=== PATIENT | female | born 1955 | race Two or more races ===

== ENCOUNTER 2019-06-20 07:05 | Day surgery (SDC) | payer MEDICARE, MEDICAID ==
[2019-06-18 08:20] LABS: BASOPHILS % (AUTO) 1.1 % (0.0-2.0); EOSINOPHILS % (AUTO) 3.7 % (0.0-3.0); HEMATOCRIT 41.5 % (37.0-47.0); HEMOGLOBIN 13.9 G/DL (12.0-16.0); LYMPHOCYTES % (AUTO) 25.9 % (20.0-45.0); MEAN CORPUSCULAR VOLUME 90 FL (80-99); MONOCYTES % (AUTO) 7.6 % (1.0-10.0); NEUTROPHILS % (AUTO) 61.7 % (45.0-75.0); PLATELET COUNT 426 K/UL (150-450); RED BLOOD COUNT 4.63 M/UL (4.20-5.40); RED CELL DISTRIBUTION WIDTH 12.1 % (11.6-14.8); WHITE BLOOD COUNT 10.6 K/UL (4.8-10.8)
[2019-06-18 08:25] LABS: ANION GAP 7 mmol/L (5-15); BLOOD UREA NITROGEN 15 mg/dL (7-18); CALCIUM 8.9 MG/DL (8.5-10.1); CARBON DIOXIDE 30 MMOL/L (21-32); CHLORIDE 103 MMOL/L (98-107); CREATININE 0.8 MG/DL (0.55-1.30); POTASSIUM 4.4 MMOL/L (3.5-5.1); SODIUM 140 MMOL/L (136-145)
[2019-06-18 08:49] LABS: INR 0.9 (0.9-1.1)
--- NOTE | 2019-06-18 11:02 | Opthalmology H&P ---
Ophthalmology H&P H&P Chief Complaint: decreased vision in left eye HPI Vision Affects Ability to: read, focus/use eyes together, manage personal affairs HPI Narrative Blurry Vision Exam Visual Acuity: OD 20/30 OS 20/200 Tension: OD 13 OS 13 Eye Exam: normal OU: external exam, palpebral fissure-width, marginal reflex distance, levator function, corneas, anterior chambers, fundus exam; findings: lens - NS OS Assessment/Plan Treatment Plan: cataract extraction w/ lens implant - Left Eye Goals of Treatment: improvement of vision, enhance quality of life Attestation Attestation The risks and benefits of the surgery as well as alternative procedures were explained to the patient in detail. Delmer Garcia MD Jun 18, 2019 11:02
--- NOTE | 2019-06-18 11:03 | Pre-Procedure Note/Attestation ---
Pre-Procedure Note/Attestation Complete Prior to Procedure Planned Procedure: left Procedure Narrative: Cataract Extraction With Intraocular Lens Implant Left Eye Indications for Procedure Pre-Operative Diagnosis: Nuclear Sclerotic Cataract Left Eye Attestation I attest that I discussed the nature of the procedure; its benefits; risks and complications; and alternatives (and the risks and benefits of such alternatives ), prior to the procedure, with the patient (or the patient's legal insurance healthcare representative). I attest that, if there was a reasonable possibility of needing a blood transfusion, the patient (or the patient's legal insurance healthcare representative) was given the [facility] standardized written summary, pursuant to the [place] Blood Safety Act ([place] Health and Safety Code # 1645, as amended). I attest that I re-evaluated the patient just prior to the surgery and that there has been no change in the patient's H&P, except as documented below: Delmer Garcia MD Jun 18, 2019 11:03
--- NOTE | 2019-06-18 16:00 | Pre-op HX & Phy Repo 2 SIG ---
DATE OF ADMISSION: 06/20/2019 PRESURGICAL INTERNAL MEDICINE HISTORY AND PHYSICAL DATE OF EVALUATION: 06/18/2019. REFERRING PHYSICIAN: Delmer Garcia M.D. REASON FOR EVALUATION: I was asked to see this 64-year-old female who going for elective surgery of the left eye cataract on 06/20/2019 at [facility]. The patient was evaluated in outpatient procedure [facility]. PAST MEDICAL HISTORY/REVIEW OF SYSTEMS: Remarkable for hypertension. Denies history of chest pain, palpitation, or heart attack. No diabetes mellitus. No stroke or seizures. Denies history of respiratory problem. No asthma or bronchitis. No history of thyroid problem. No renal failure. No GI bleeding. PAST SURGICAL HISTORY: . FAMILY HISTORY: Mother from complication of liver cancer. Father had a heart attack. ALLERGIES: Not known. PRESENT MEDICATIONS: Include baby aspirin 81 mg, atorvastatin 10 mg, hydrochlorothiazide 12.5 mg, . HABITS: Denies history of smoke or alcohol habits. No street drugs. PHYSICAL EXAMINATION: GENERAL: Alert, well-developed, well-nourished female in her 60's, no acute distress. VITAL SIGNS: Blood pressure 144/85, temperature 97, pulse 93 regular, O2 saturation 99% on room air, respiratory rate 20 per minute. SKIN: Clear, warm, and dry. No rashes. LYMPHATICS: Lymph nodes not enlarged. HEENT: Head, normocephalic and atraumatic. Ears, clear, no discharge. Eyes, full description per Dr. Delmer Garcia. Mouth, clear and moist. Absent teeth. NECK: No jugular vein distention. Carotids artery +2. Trachea midline. CHEST: No deformity or asymmetry. LUNGS: Clear to auscultation and percussion. No rales or rhonchi. HEART: Sinus rhythm. No ectopy. No murmur. No S3, S4. ABDOMEN: Soft, benign. Liver and spleen not enlarged. No rebound. EXTREMITIES: No peripheral edema. No varicose vein. Degenerative joint disease of knee. GENITOURINARY TRACT: Denies dysuria. No CVA tenderness. NERVOUS SYSTEM: No tremor. No nystagmus. No asymmetry. ECG, normal sinus rhythm, 63 per minute, normal ECG. LABORATORY DATA: Lab work pending. The patient is to be NPO after midnight, 06/20/2019. IMPRESSION: 1. Nuclear sclerotic cataract, left eye. 2. Hypertension, controlled. 3. Degenerative joint disease, knee. PLAN: Cataract extraction, left eye with intraocular lens implant per Dr. Delmer Garcia. CONCLUSION: The patient is a 64-year-old female with history of hypertension with normal EKG and normal vital signs. The patient's condition optimized for surgery. Thank you very much, Dr. Garcia, for privilege to participate in presurgical care of this interesting patient. Geovanni Dickson M.D. DR: BRANDIE JOB#: [id number] CC:
[2019-06-20] VITALS (9 sets, daily range): BP systolic 121–143; BP diastolic 72–91
[~2019-06-20] VITALS: Ht 152.4 cm; Wt 85.3 kg
[~2019-06-20 07:05] MED LIST: ASPIR 8181 MG ORAL; Akten 3.5% 1ml Btl LEFT EYE ONE; HYDROCHLOROTH12.5 MG ORAL; LIPITOR10 MG ORAL; MAPAP500 M2 PO; Proparacaine 0.5% Opth Soln 15ml LEFT EYE ONE; Tetracaine 0.5% Opth 4ml Soln LEFT EYE ONE
[2019-06-20] MEDS: Tropicamide 1% Opth 15ml Soln LEFT EYE SCH ×3 (08:28→08:40)
[2019-06-20] MEDS: Cyclopentolate 1% Opth Sol 2ml LEFT EYE SCH ×3 (08:28→08:41)
[2019-06-20] MEDS: Phenylephrine 10% Opth Soln 5ml LEFT EYE SCH ×3 (08:28→08:40)
[2019-06-20] MEDS ORDERED: Povidone-Iodine 5% opth solution ONE (08:58)
[2019-06-20] MEDS ORDERED: BSS 500ml btl ONE (08:58)
[2019-06-20] MEDS ORDERED: EPINEPHrine 1mg/1ml Amp ONE (08:58)
[2019-06-20] MEDS ORDERED: BSS 15ml BTL ONE (08:58)
[2019-06-20] MEDS ORDERED: Sodium Hyaluronate 10 mg/ml 0.85ml ONE (08:59)
--- NOTE | 2019-06-20 09:35 | Anethesia Preoperative Eval ---
Anesthesia Pre-op PMH/ROS General Date of Evaluation: Jun 20, 2019 Time of Evaluation: 09:35 Anesthesiologist: Charla ASA Score: ASA 2 Mallampati Score Class I : Soft palate, uvula, fauces, pillars visible Class II: Soft palate, uvula, fauces visible Class III: Soft palate, base of uvula visible Class IV: Only hard plate visible Mallampati Classification: Class II Surgeon: Radha Diagnosis: L eye cataract Surgical Procedure: Cataract extraction Anesthesia History: none Family History: no anesthesia problems Allergies: Coded Allergies: No Known Allergies (Unverified , 06/20/19) Medications: see eMAR Patient NPO?: Yes Past Medical History Cardiovascular: Reports: HTN; Denies: CAD, [place], valve dz, arrhythmia, other Pulmonary: Denies: asthma, COPD, [place], other Gastrointestinal/Genitourinary: Reports: GERD; Denies: CRI, ESRD, other Neurologic/Psychiatric: Denies: dementia, CVA, depression/anxiety, TIA, other Endocrine: Denies: DM, hypothyroidism, steroids, other HEENT: Reports: cataract (L), cataract (R); Denies: glaucoma, [place] (L), [place] (R), other Hematology/Immune: Denies: anemia, DVT, bleeding disorder, other Musculoskeletal/Integumentary: Reports: OA Other: obesity PMH Narrative: as above PSxH Narrative: see H&P Anesthesia Pre-op Phys. Exam Physician Exam Last Vital Signs Date Time Temp Pulse Resp B/P (MAP) Pulse Ox O2 Delivery O2 Flow Rate FiO2 06/20/19 08:23 Room Air 06/20/19 08:21 97.4 83 18 122/83 97 Constitutional: NAD Neurologic: CN 2-12 intact Cardiovascular: RRR, no M/R/G Respiratory: CTA Gastrointestinal: S/NT/ND Airway Exam Mallampati Score: Class II MO: full Neck: short ROM: limited Teeth: missing Dentures: no upper, no lower Anesthesia Pre-op A/P Labs see chart Studies Pre-op Studies: EKG - NSR Risk Assessment & Plan Assessment: ASA 2 Plan: MAC Status Change Before Surgery: No Pre-Antibiotics Drug: none Zhou Dunham MD Jun 20, 2019 09:35
[2019-06-20] MEDS ORDERED: LR 1000ml 1,000 ML IVLG SCH (09:37)
[2019-06-20] MEDS ORDERED: Midazolam 2mg/2ml Inj ONE (09:39)
[2019-06-20] MEDS ORDERED: fentaNYL 100 mcg/2 mL IV ONE (09:39)
[2019-06-20] MEDS ORDERED: fentaNYL 100 mcg/2 mL IV PRN (09:45)
[2019-06-20] MEDS ORDERED: Propofol 200mg/20ml IV ONE (10:00)
[2019-06-20] MEDS ORDERED: LR 1000ml ONE (10:00)
[2019-06-20] MEDS ORDERED: NS Irrig 1000ml ONE (10:00)
[2019-06-20] MEDS ORDERED: Sterile Water Irrig 1000ml IRRIG ONE (10:00)
[2019-06-20] MEDS ORDERED: Ciprofloxacin Opth Soln 2.5ml ONE (10:29)
--- NOTE | 2019-06-20 10:57 | Immediate Post-Op Evaluation ---
Immediate Post-Op Evalulation Immediate Post-Op Evalulation Procedure: L eye cataract exttraction with IOL Date of Evaluation: Jun 20, 2019 Time of Evaluation: 10:56 IV Fluids: 300 Blood Products: none Estimated Blood Loss: none Urinary Output: none Blood Pressure Systolic: 128 Blood Pressure Diastolic: 76 Pulse Rate: 80 Respiratory Rate: 20 O2 Sat by Pulse Oximetry: 99 Temperature (Fahrenheit): 97.6 Pain Score (1-10): 1 Nausea: No Vomiting: No Complications none Patient Status: awake, patent, none Hydration Status: adequate Zhou Dunham MD Jun 20, 2019 10:57
--- NOTE | 2019-06-20 11:58 | 48 Hour Post Anesthesia Eval ---
Post Anesthesia Evaluation Procedure: L eye cataract exttraction with IOL Date of Evaluation: Jun 20, 2019 Time of Evaluation: 11:57 Blood Pressure Systolic: 124 0: 72 Pulse Rate: 68 Respiratory Rate: 18 Temperature (Fahrenheit): 97.8 O2 Sat by Pulse Oximetry: 99 Airway: patent Nausea: No Vomiting: No Pain Intensity: 1 Hydration Status: adequate Cardiopulmonary Status: stable Mental Status/LOC: patient returned to baseline Follow-up Care/Observations: n/a Post-Anesthesia Complications: none Follow-up care needed: ready to discharge Zhou Dunham MD Jun 20, 2019 11:58
--- NOTE | 2019-06-25 10:45 | Brief Operative Note ---
Immediate Post Operative Note Operative Note Chief Complaint: Blurry Vision Pre-op Diagnosis: Nuclear Sclerotic Cataract Left Eye Procedure: Cataract extraction with intraocular lens implant left eye Post-op Diagnosis: Pseudophakia OS Findings: consistent w/pre-op dx studies Surgeon: Delmer Garcia MD Anesthesiologist: Zhou Dunham MD Anesthesia: MAC Specimen: none Complications: none Condition: stable Fluids: LR Estimated Blood Loss: none Drains: none Implant(s) used?: Yes - IOL OS Delmer Garcia MD Jun 25, 2019 10:45
--- NOTE | 2019-06-25 10:47 | Operative Note - PDOC ---
Operative Note Operative Note Date of Operation/Procedure: Jun 20, 2019 Chief Complaint: Blurry Vision Pre-op Diagnosis: Nuclear Sclerotic Cataract Left Eye Procedure: Cataract extraction with intraocular lens implant left eye Post-op Diagnosis: Pseudophakia OS Operative Findings: consistent w/pre-op dx studies Surgeon: Delmer Garcia MD Anesthesiologist: Zhou Dunham MD Anesthesia: MAC Specimen: none Complications: none Condition: stable Fluids: LR Estimated Blood Loss: none Drains: none Implant(s) used?: Yes Indications for Procedure Nuclear sclerotic cataract left eye Description of Procedure This patient has been complaining visually significant cataract in the left eye with the best corrected visual acuity of 20/200 under moderate glare conditions worse. The patient complains of difficulties with glare in performing activities of daily living and wants to manage personal affairs with comfort and accuracy and see well enough to move with safety at home and outdoors independently. The risks, benefits and alternatives of the procedure were discussed with the patient in the office prior to scheduling surgery. All questions from the patient were answered after the surgical procedure was explained in detail. The risks of the procedure as explained to the patient include, but are not limited to, pain, infection, bleeding, loss of vision, retinal detachment, need for further surgery, loss of lens nucleus, double vision, etc. Alternative procedures were discussed which include, to do nothing or seek a second opinion. Informed consent for this procedure was obtained from the patient. The patient was referred to a primary care physician for a cardiopulmonary clearance prior to surgery, after proper evaluation was done patient was properly scheduled for outpatient surgery. The patient was brought to the operating room where the anesthesiologist established I.V. lines and cardiac monitoring leads. Mild intravenous sedation was administered. The patient was then prepared with a 5% solution of povidone -iodine to the conjunctival fornix and lashes, and a 5% solution of povidone- iodine to the lids and periorbital skin. The patient was then draped in the usual sterile fashion. A lid speculum was then placed in the operative eye. A keratome blade was then used to create a biplanar incision into the anterior chamber. Viscoelastics was then instilled into the anterior chamber. A capsulorrhexis was then fashioned with an utrata forceps. BSS and a cannula were then used to hydrodissect and hydro delineate the lens. Paracentesis incision was made at 3 o'clock with sharp blade. The phacoemulsification unit, after being properly adjusted and tested, was then used to emulsify the nucleus. Residual cortical material was aspirated with the irrigation and aspiration unit. Healon was then instilled into the anterior chamber. The corneal wound was then enlarged to the size of the optic with the francia keratome blade. The intraocular lens was then inspected for right power and size and thought to be satisfactory. Then the lens was gently placed in the capsular bag. Positioning within the capsular bag was confirmed by direct visualization. Optic centration was accomplished with a Sinskey hook. Viscoelastics was removed from the anterior chamber using the irrigation and aspiration unit. The corneal wound was then tested for leaks and none were found. The lid speculum were then removed. Sponge and needle counts were correct. An eye patch and shield were placed over the operative eye. The patient was taken to the recovery room in stable condition. There were no complications. The patient tolerated the procedure well. The patient was then transferred to the ambulatory surgery unit in stable and satisfactory condition , was given detailed written instructions and asked to follow up in the office the next day. Delmer Garcia MD Jun 25, 2019 10:47
== END 2019-06-20 12:20 | disposition home or self-care (01) ==
LOC: SUR 07:05
DX: H25.12 Age-related nuclear cataract, left eye (principal); Z79.82 Long term (current) use of aspirin; I10 Essential (primary) hypertension; Z80.8 Family history of malignant neoplasm of other organs or systems; Z82.49 Family history of ischemic heart disease and other diseases of the circulatory system; M17.10 Unilateral primary osteoarthritis, unspecified knee
CPT/HCPCS: 36415; 66984; 80048; 85025; 85610; 85730; 93005; J0171; J2250; J2704; J3010; J3370; J7120; V2632; 94003; 94150